=== PATIENT | female | born 1995 | race Caucasian/White ===

== ENCOUNTER → 2019-05-02 09:44 | Outpatient (BNVA) | payer OTHER, SELFPAY | PROVIDERS: Family Provider Family Medicine; PCP Family Medicine; Visit Provider Nurse Practitioner Family | DX: J02.9 Acute pharyngitis, unspecified (principal); J01.40 Acute pansinusitis, unspecified | CPT/HCPCS: 87070; 87880 ==

== ENCOUNTER → 2019-06-18 10:24 | Outpatient (BNVA) | payer OTHER, SELFPAY | PROVIDERS: Family Provider Family Medicine; PCP Family Medicine; Visit Provider Nurse Practitioner | DX: R05 Cough (principal); J10.1 Influenza due to other identified influenza virus with other respiratory manifestations | CPT/HCPCS: 87804 ==

== ENCOUNTER 2021-05-31 15:23 | Emergency (ER) | payer OTHER, SELFPAY ==
[2021-05-31 16:20] VITALS: BP 182/85; PULSE 77; RESP 18; TEMP 37.2; O2SAT 99; BMI 50.5
--- NOTE | 2021-05-31 19:45 | USR_ITS ---
PROCEDURE INFORMATION: Exam: US Abdomen, Limited; Right Upper Quadrant Exam date and time: 05/31/2021 7:45 PM Age: 25 years old Clinical indication: Abdominal pain; Additional info: Eval for R upper abd pain TECHNIQUE: Imaging protocol: US abdomen. Real time ultrasound with image documentation. Limited exam focused on the right upper quadrant. COMPARISON: US [facility] [place] OB < 14 weeks w TV 11/03/2016 2:45 PM FINDINGS: Liver: Liver is mildly enlarged and shows normal uniform echogenicity. There is no focal abnormality within the liver. Liver measures 17 cm in height. Gallbladder: Gallbladder is normal. There is no gallstone. There is no gallbladder wall thickening or pericholecystic fluid. Common bile duct: Common bile duct measures 2 mm. Pancreas: Pancreas is largely obscured by intestinal gas. The visualized portions are unremarkable. Right kidney: No hydronephrosis. Normal size with normal cortical echogenicity. Inferior vena cava: IVC has a normal diameter and is patent. US/US gall bladder [id number] IMPRESSION: Mild hepatomegaly. No acute findings.
--- NOTE | 2021-05-31 19:45 | USR_ITS ---
PROCEDURE INFORMATION: Exam: US Pelvis Complete, Transabdominal and US Pelvis, Transvaginal Exam date and time: 05/31/2021 7:45 PM Age: 25 years old Clinical indication: Pelvic pain; Patient HX: Vaginal bleeding; Additional info: Vagingal bleeding eval ovarian pathologies TECHNIQUE: Imaging protocol: Real-time transabdominal and transvaginal pelvic ultrasound (complete) with image documentation. Transvaginal imaging was used for better evaluation of the endometrium, adnexa, and/or cervix. COMPARISON: US [facility] [place] < 14 weeks w TV 11/03/2016 2:45 PM FINDINGS: Uterus: Uterus measures 6.6 x 5.3 x 3.8 cm. Endometrium is 8 mm in thickness. Cervix: There is a small nabothian cyst in the cervix. Uterus is otherwise unremarkable. Right ovary/adnexa: Right ovary measures 3.1 x 2.8 x 1.8 cm. There is some small follicles in the right ovary. There is normal Doppler flow in the right ovary. Left ovary/adnexa: Left ovary measures 2.7 x 2.0 x 1.1 cm. There is a small simple cyst in the left ovary measuring 2.1 x 0.3 x 1.0 cm. There is normal Doppler flow in the left ovary. Intraperitoneal space: No free fluid is identified. Urinary bladder: Normal. US/US pelvic with transvaginal IMPRESSION: Basically unremarkable ultrasound of the pelvis.
--- NOTE | 2021-05-31 19:59 | ED_ITS ---
HPI - General Adult General: Chief complaint: Abdominal Pain Stated complaint: R side an back pain Time Seen by Provider: 05/31/21 19:19 History of Present Illness: Patient is a 25-year-old female with a history of irregular periods, prior ectopic presenting to the emergency room with complaints of heavy bleeding since 2 AM yesterday morning along with right-sided flank and back pain. Patient tells me that she was sleepy in the morning when she son laid noticed passage of clots and heavy bleeding. Since then, patient has gone through multiple pads an hour with usage of tampons. In addition, since this morning, patient has noted significant right-sided flank pain. No history of kidney stones. Patient denies any new vaginal discharge, urinary complaints including hematuria/polyuria or dysuria. Patient has no abdominal complaints. Denies any nausea/vomiting, fever/chills, decreased p.o. intake, chest pain shortness of lightheadedness or palpitation. Patient has no prior abdominal surgery. Denies any trauma to the abdomen. Onset: 1 day ago Duration: ongoing Associated symptoms: heavy vaginal bleeding and R sided abd/flank pain Severity: moderate Associated symptoms: Deny chest pain, dyspnea, nausea, rash, palpitations or vomiting Review of Systems Const: Denies: fever(s) or chills Eyes: Denies: change in vision ENMT: Denies: mouth pain Card: Denies: chest pain or palpitations Resp: Denies: dyspnea or non-productive cough GI: Reports: abdominal pain (+R sided abd pain); Denies: nausea, vomiting or diarrhea : Reports: other (+vaginal bleeding); Denies: dysuria Musc: Denies: extremity pain Skin/Breast: Denies: rash or new lesions Neuro: Denies: weakness in extremities Psych: Reports: other (Normal mood) Josh/Lymph: Denies: easy bruising PFS ED PFSH: Medical History Ectopic Irregular periods Social History Smoking and tobacco status: never smoked Alcohol intake: current Alcohol intake frequency: holidays/special occasions only Substance/Drug Use: never Physical Exam Const: COMMON NORMALS: alert HENMT: COMMON NORMALS: atraumatic HEAD & SCALP: atraumatic MOUTH: moist mucous membranes not abnormal Eye: COMMON NORMALS: EOMs intact bilaterally and conjunctivae normal CONJUNCTIVA: Yes conjunctivae normal Neck/C-Spine: COMMON NORMALS: full ROM and supple Resp: COMMON NORMALS: normal respiratory effort and clear to auscultation bilaterally AUSCULTATION: clear to auscultation bilaterally Cardio: COMMON NORMALS: regular rate RATE: regular rate GI: COMMON NORMALS: Soft to palpation and non-tender PALPATION: Yes Soft to palpation Extremity: COMMON NORMALS: full ROM Neuro: SENSORIUM/ORIENTATION: Yes alert MOTOR EXAM: No Abnormal motor strength present and Other motor observations present (no focal motor deficits) Psych: COMMON NORMALS: speech normal SPEECH: Yes normal speech MOOD & AFFECT: Yes euthymic mood Course Vital Signs: Vital signs: Vital Signs Temperature 98.4 F 06/01/21 04:51 Pulse Rate 67 06/01/21 04:51 Respiratory Rate 15 06/01/21 04:51 Blood Pressure 165/87 06/01/21 04:51 Pulse Oximetry 97 06/01/21 04:51 MDM - General Adult Medical Decision Making 25-year-old female presenting to the emergency with complaints of right side abdominal pain/flank pain and heavy vaginal bleeding x1 day. On exam, patient is noted to have a small pool of blood in the vaginal vault. No other signs of active bleeding. Patient on abdominal exam has mild tenderness to palpation without any guarding or rebound tenderness or Grace sign. WBC of 12.5 today. Hemoglobin 7.5 initially but on repeat after 2 hours remained similar to 7.4. Ultrasound did not show any signs of cholecystitis, hydronephrosis on the right side, or [facility] pathology. She received morphine and Tylenol with significant improvement in pain. No concern for active extravasation or bleeding at this time. Hemoglobin of 7.5, decision was made in congestion with patient to have close follow-up follow-up with AXLE TURNER. I have given patient follow up with our rifle case repairer to be seen by Dr. Reeves for heavy and irregular bleeding in the setting of hemoglobin of 7.5. Patient aware of a call from our rifle case repairer to schedule for appointment(s) and verbalizes understanding of the importance of following up. It is expected have an appointment on Monday or Monday. Dr. Reeves recommend transfusing 2 units of blood in the emergency room in case patient have more bleeding until seen in 2-3 deays. Patient received 2 units of blood in the ER. Patient refused control for bleeding control given famly hx of blood clots. Rx iron tablet for anemia, tylenol PRN abd pain, maalox/pepcid PRN dyspepsia, a nd zofran PRN nausea/vomiting Disposition: Discharge. Patient counseled regarding diagnostic impression, treatment plan. Patient given ED strict return precautions to return for continuation, worsening, or development of new symptoms. Instructed to f/u w/ PCP regarding symptoms today. Patient verbalized understanding. Lab Data : 05/31/21 21:54 05/31/21 20:00 Radiology Impressions Gallbladder Ultrasound 05/31/21 19:45 IMPRESSION: Mild hepatomegaly. No acute findings. Pelvic/Transvag US 05/31/21 19:45 IMPRESSION: Basically unremarkable ultrasound of the pelvis. Laboratory Results WBC 12.5 10^3/uL (4.0-10.0) H 05/31/21 21:54 RBC 4.92 10^6/uL (4.1-5.3) 05/31/21 21:54 Hgb 7.4 g/dL (11.5-15.3) L 05/31/21 21:54 Hct 29.1 % (37.0-47.0) L 05/31/21 21:54 MCV 59.1 fl (81-99) L 05/31/21 21:54 MCH 15.0 pg (28.0-34.0) L 05/31/21 21:54 MCHC 25.4 g/dL (30.0-36.0) L 05/31/21 21:54 RDW 22.3 % (12.1-15.1) H 05/31/21 21:54 Plt Count 428 10^3/cmm (130-400) H 05/31/21 21:54 MPV 9.3 fL (7.4-10.4) 05/31/21 21:54 Neut % (Auto) 67.5 % 05/31/21 21:54 Lymph % (Auto) 23.2 % 05/31/21 21:54 [place] % (Auto) 5.2 % 05/31/21 21:54 Eos % (Auto) 2.9 % 05/31/21 21:54 Baso % (Auto) 0.9 % 05/31/21 21:54 Neut # (Auto) 8.41 10^3/uL (1.8-7.7) H 05/31/21 21:54 Lymph # (Auto) 2.9 10^3/uL (0.8-4.8) 05/31/21 21:54 [place] # (Auto) 0.7 10^3/uL (0.2-0.9) 05/31/21 21:54 Eos # (Auto) 0.4 10^3/uL (0.0-0.8) 05/31/21 21:54 Baso # (Auto) 0.1 10^3/uL (0.0-0.1) 05/31/21 21:54 Nucleated RBC % (auto) 0 % 05/31/21 21:54 Nucleated RBCs # 0.0 /100WBC 05/31/21 21:54 Sodium 139 mmol/L (136-145) 05/31/21 20:00 Potassium 3.4 mmol/L (3.5-5.1) L 05/31/21 20:00 Chloride 106 mmol/L (98-107) 05/31/21 20:00 Carbon Dioxide 21 mmol/L (22-29) L 05/31/21 20:00 Anion Gap 15.4 (5-19) 05/31/21 20:00 BUN 14 mg/dL (6-20) 05/31/21 20:00 Creatinine 0.8 mg/dL (0.5-0.9) 05/31/21 20:00 GFR Calculation 88.9 mL/min (90-130) L 05/31/21 20:00 Glucose 90 mg/dL (65-115) 05/31/21 20:00 Calculated Osmolality 288 mOsm/kg (285-295) 05/31/21 20:00 Calcium 9.5 mg/dL (8.5-10.5) 05/31/21 20:00 Total Bilirubin 0.2 mg/dL (0.15-1.2) 05/31/21 20:00 AST 15 U/L (0-32) 05/31/21 20:00 ALT 16 U/L (0-33) 05/31/21 20:00 Alkaline Phosphatase 97 IU/L (35-105) 05/31/21 20:00 Total Protein 7.2 g/dL (6.6-8.7) 05/31/21 20:00 Albumin 3.8 g/dL (3.5-5.2) 05/31/21 20:00 Globulin 3.4 g/dL (1.3-4.6) 05/31/21 20:00 Lipase 16 U/L (13-60) 05/31/21 20:00 HCG, Qual Negative (Negative) 05/31/21 21:54 Blood Type O Positive 05/31/21 23:01 Rho(D) Type Positive 05/31/21 23:01 Antibody Screen Negative 05/31/21 23:01 Crossmatch See Detail 05/31/21 23:01 Imaging Data Other Imaging: Radiologist's impression: [id number] [address] Ultrasound Report Signed Patient: Napoleon Sanchez Unit #: [id number] : 1995 Age/Sex: 25 / F ADM Date: 05/31/21 Loc: ER Room/Bed: Attending Dr: Ordering Provider/Ordering MD: Rita Garcia MD Date of Service: 05/31/21 Procedure(s): US pelvic with transvaginal Accession Number(s): [id number] Report Number: [id number] PROCEDURE INFORMATION: Exam: US Pelvis Complete, Transabdominal and US Pelvis, Transvaginal Exam date and time: 05/31/2021 7:45 PM Age: 25 years old Clinical indication: Pelvic pain; Patient HX: Vaginal bleeding; Additional info: Vagingal bleeding eval ovarian pathologies TECHNIQUE: Imaging protocol: Real-time transabdominal and transvaginal pelvic ultrasound (complete) with image documentation. Transvaginal imaging was used for better evaluation of the endometrium, adnexa, and/or cervix. COMPARISON: US [facility] [place] < 14 weeks w TV 11/03/2016 2:45 PM FINDINGS: Uterus: Uterus measures 6.6 x 5.3 x 3.8 cm. Endometrium is 8 mm in thickness. Cervix: There is a small nabothian cyst in the cervix. Uterus is otherwise unremarkable. Right ovary/adnexa: Right ovary measures 3.1 x 2.8 x 1.8 cm. There is some small follicles in the right ovary. There is normal Doppler flow in the right ovary. Left ovary/adnexa: Left ovary measures 2.7 x 2.0 x 1.1 cm. There is a small simple cyst in the left ovary measuring 2.1 x 0.3 x 1.0 cm. There is normal Doppler flow in the left ovary. Intraperitoneal space: No free fluid is identified. Urinary bladder: Normal. US/US pelvic with transvaginal IMPRESSION: Basically unremarkable ultrasound of the pelvis. ? Dictated By: Raimundo De La Torre Signed By: Raimundo De La Torre Signed Date/Time: 05/31/212229 DD/ [address] [address] Ultrasound Report Signed Patient: Napoleon Sanchez Unit #: [id number] : 1995 Age/Sex: 25 / F ADM Date: 05/31/21 Loc: ER Room/Bed: Attending Dr: Ordering Provider/Ordering MD: Rita Garcia MD Date of Service: 05/31/21 Procedure(s): US gall bladder 60105 Accession Number(s): [id number] Report Number: [id number] PROCEDURE INFORMATION: Exam: US Abdomen, Limited; Right Upper Quadrant Exam date and time: 05/31/2021 7:45 PM Age: 25 years old Clinical indication: Abdominal pain; Additional info: Eval for R upper abd pain TECHNIQUE: Imaging protocol: US abdomen. Real time ultrasound with image documentation. Limited exam focused on the right upper quadrant. COMPARISON: US [facility] [place] [facility] < 14 weeks w TV 11/03/2016 2:45 PM FINDINGS: Liver: Liver is mildly enlarged and shows normal uniform echogenicity. There is no focal abnormality within the liver. Liver measures 17 cm in height. Gallbladder: Gallbladder is normal. There is no gallstone. There is no gallbladder wall thickening or pericholecystic fluid. Common bile duct: Common bile duct measures 2 mm. Pancreas: Pancreas is largely obscured by intestinal gas. The visualized portions are unremarkable. Right kidney: No hydronephrosis. Normal size with normal cortical echogenicity. Inferior vena cava: IVC has a normal diameter and is patent. US/ gall bladder 13150 IMPRESSION: Mild hepatomegaly. No acute findings. ? Dictated By: Raimundo De La Torre Signed By: Raimundo De La Torre Signed Date/Time: 05/31/212157 DD/ 44 Discharge Plan Discharge Patient Disposition: Home Clinical Impression: Abnormal vaginal bleeding, Abdominal pain Condition: Stable Prescriptions: New acetaminophen 500 mg tablet 500 mg PO Q6H PRN (Reason: pain) 5 Days Qty: 20 0RF Zofran 4 mg tablet 4 mg PO TID PRN (Reason: nausea and vomiting) 4 Days Qty: 12 0RF Pepcid 20 mg tablet 20 mg PO BID PRN (Reason: abdominal pain) 10 Days Qty: 20 0RF Maalox Advanced 1,000-60 mg tablet,chewable 1 tab PO TID PRN (Reason: abdominal pain) 7 Days Qty: 21 0RF ferrous sulfate 325 mg (65 mg iron) tablet 325 mg PO BID 15 Days Qty: 30 0RF No Action labetalol 200 mg tablet 200 mg PO BID 0RF albuterol sulfate [ProAir HFA] 90 mcg/actuation HFA aerosol inhaler 2 puff INHALATION Q6H PRN0RF Discharge Orders: Discharge ED (Routine); Ordered 06/01/21 Ordered By: Rita Garcia Referrals: Shakeel Mei MD [Primary Care Provider] - Discharge Diet: Advance as tolerated Discharge Activity: Increase activity as tolerated Patient Instructions: Abnormal (Dysfunctional) Uterine Bleeding (ED), Abdominal Pain (ED) Activity Restrictions/Additional Instructions: Please come back if you have any worsening abdominal pain, fever or chills, nausea or vomiting, diarrhea, blood in the stool, inability hold down liquid or solids, or any new concerning complaints. Our rifle case repairer will have you follow-up with a log driver in the next few days for evaluation of pain. You would be expected to have a phone call with our rifle case repairer who will put you on the schedule. Please do not smoke cigarettes while taking your control pill. Call Dr. Reeves's clinic to schedule an appointment at?[phone]. She will briggs ve you scheduled for Monday or Monday Coding Level of Care Code ED Gameplay Programmer for Chg Fwd Exam Comprehensive
[2021-05-31 20:00] VITALS: BP 156/81; PULSE 75; RESP 18; TEMP 37.2; O2SAT 99
[2021-05-31 20:10] LABS: Basophils # 0.1 10^3/uL (0.0-0.1); Basophils % 0.9 %; Eosinophils # 0.3 10^3/uL (0.0-0.8); Eosinophils % 2.4 %; Hematocrit 29.4 % (37.0-47.0); Hemoglobin 7.5 g/dL (11.5-15.3); Lymphocytes # 2.8 10^3/uL (0.8-4.8); Lymphocytes % 23.6 %; Mean Corpuscular HGB Conc 25.5 g/dL (30.0-36.0); Mean Corpuscular Hemoglobin 15.1 pg (28.0-34.0); Mean Corpuscular Volume 59.2 fl (81-99); Mean Platelet Volume 9.1 fL (7.4-10.4); Monocytes # 0.6 10^3/uL (0.2-0.9); Monocytes % 4.7 %; Neutrophils # 8.01 10^3/uL (1.8-7.7); Neutrophils % 68.1 %; Nucleated Red Blood Cells % 0 %; Platelet Count 433 10^3/cmm (130-400); Red Blood Count 4.97 10^6/uL (4.1-5.3); Red Cell Distribution Width 22.3 % (12.1-15.1); White Blood Count 11.8 10^3/uL (4.0-10.0)
--- NOTE | 2021-05-31 20:24 | PC.NURSE ---
Assisted Dr. Garcia during a pelvic exam. PT tolerated it well.
[2021-05-31 20:43] LABS: Alanine Aminotransferase 16 U/L (0-33); Albumin Level 3.8 g/dL (3.5-5.2); Alkaline Phosphatase 97 IU/L (35-105); Anion Gap 15.4 (5-19); Aspartate Amino Transferase 15 U/L (0-32); Blood Urea Nitrogen 14 mg/dL (6-20); Calcium 9.5 mg/dL (8.5-10.5); Carbon Dioxide 21 mmol/L (22-29); Chloride 106 mmol/L (98-107); Globulin 3.4 g/dL (1.3-4.6); Glomerular Filtration Rate 88.9 mL/min (90-130); Glucose 90 mg/dL (65-115); Lipase 16 U/L (13-60); Osmolality Calculated 288 mOsm/kg (285-295); Potassium 3.4 mmol/L (3.5-5.1); Sodium 139 mmol/L (136-145); Total Bilirubin 0.2 mg/dL (0.15-1.2); Total Protein 7.2 g/dL (6.6-8.7)
[2021-05-31] MEDS: potassium chloride ER 20 mEq Tablet 40 MEQ PO (21:59)
[2021-05-31 22:02] LABS: Basophils # 0.1 10^3/uL (0.0-0.1); Basophils % 0.9 %; Eosinophils # 0.4 10^3/uL (0.0-0.8); Eosinophils % 2.9 %; Hematocrit 29.1 % (37.0-47.0); Hemoglobin 7.4 g/dL (11.5-15.3); Lymphocytes # 2.9 10^3/uL (0.8-4.8); Lymphocytes % 23.2 %; Mean Corpuscular HGB Conc 25.4 g/dL (30.0-36.0); Mean Corpuscular Volume 59.1 fl (81-99); Mean Platelet Volume 9.3 fL (7.4-10.4); Monocytes # 0.7 10^3/uL (0.2-0.9); Monocytes % 5.2 %; Neutrophils # 8.41 10^3/uL (1.8-7.7); Neutrophils % 67.5 %; Nucleated Red Blood Cells % 0 %; Platelet Count 428 10^3/cmm (130-400); Red Blood Count 4.92 10^6/uL (4.1-5.3); Red Cell Distribution Width 22.3 % (12.1-15.1); White Blood Count 12.5 10^3/uL (4.0-10.0)
[2021-05-31 22:21] LABS: HCG, Serum Qual Negative (Negative)
[2021-05-31 22:25] VITALS: RESP 18
[2021-05-31] MEDS: acetaminophen 500 mg Tablet PO (22:25)
[2021-05-31] MEDS: morphine 4 mg/mL SDV 1 mL 2 MG IVP (22:25)
[2021-05-31] MEDS: sodium chloride 0.9% 100 mL Bag 50 ML IV (23:47)
[2021-06-01] VITALS (11 sets, daily range): BP systolic 165–186; BP diastolic 87–111; PULSE 64–75; RESP 15–17; TEMP 36.9; O2SAT 97–99
[2021-06-01] MEDS: labetalol 200 mg Tablet PO (04:50)
--- NOTE | 2021-06-01 10:54 | DCPLANNER ---
Addendum entered by Ania Sanders 07/23/21 12:48: Patient had a follow up appointment scheduled for 07.19.21 with [facility] - patient did attend appointment. Addendum entered by Ania Sanders 06/11/21 08:06: Patient has a follow up appointment scheduled for Monday, July 19, 2021 at 9:[address] Duran at [facility]. Clinic will call patient with appointment information. Original Note: manager quantitative had message to schedule a follow up appointment for patient with [facility]. manager quantitative called the [facility], spoke with Praneeth, gave clinic patients information. manager quantitative was told that patients information would be printed and reviewed. Clinic will call patient with appointment information.
== END 2021-06-01 04:53 | disposition home or self-care (01) ==
PROVIDERS: Physician Assistant; Emergency Provider Emergency Medicine; PCP Family Medicine
DX: R10.9 Unspecified abdominal pain (principal); N93.9 Abnormal uterine and vaginal bleeding, unspecified
CPT/HCPCS: 36430; 76705; 76830; 76856; 80053; 83690; 84703; 85025; 86850; 86900; 86920; 96374; 99284; J2270; P9016

== ENCOUNTER → 2021-07-07 13:30 | Outpatient (BNVA) | payer OTHER, SELFPAY | PROVIDERS: PCP Family Medicine; Visit Provider Obstetrics & Gynecology | DX: Z87.59 Personal history of other complications of pregnancy, childbirth and the puerperium (principal) | CPT/HCPCS: 80053; 84702; 85025; 86850; 86900 ==

== ENCOUNTER → 2021-09-13 10:06 | Outpatient (BNVA) | payer OTHER, SELFPAY | PROVIDERS: PCP Family Medicine; Visit Provider Obstetrics & Gynecology | DX: N93.9 Abnormal uterine and vaginal bleeding, unspecified (principal); Z12.4 Encounter for screening for malignant neoplasm of cervix | CPT/HCPCS: 84144; 84146; 84403; 84443; 84702; 88175 ==

== ENCOUNTER → 2021-10-18 16:04 | Outpatient (BNVA) | payer OTHER, SELFPAY | PROVIDERS: PCP Family Medicine; Visit Provider Obstetrics & Gynecology | DX: N93.9 Abnormal uterine and vaginal bleeding, unspecified (principal) | CPT/HCPCS: 85027 ==

== ENCOUNTER 2021-11-16 08:18 | Outpatient (CLI) | payer OTHER, SELFPAY ==
--- NOTE | 2021-11-16 08:30 | FL_ITS ---
WS: [id number] HYSTEROGRAM PERFORMED UNDER FLUOROSCOPY HISTORY: E28.2 - Polycystic ovarian syndrome. FLUOROSCOPY TIME: 1min [id number] minutes. # Of spot films: 4. Cannulization of the cervix performed by Dr. Saez. Good filling of the uterus. There is immediate filling and spillage from the RIGHT fallopian tube which is normal size. Very slight dilatation of t he LEFT fallopian tube which does not during this examination. FL/FL hysterosalpingography [id number] IMPRESSION: 1. Obstructed LEFT fallopian tube. 2. Patent RIGHT fallopian tube.
--- NOTE | 2021-11-16 09:16 | PM.OP ---
Operative Report Date of procedure: November 16, 2021 Pre-op diagnosis: PCOS Post-op diagnosis: same Procedure done: HSG Surgeon: Dinora Saez Estimated blood loss (mL): 0 Complications: none Findings: 6 week sized uterus. Normal right patency. Blocked left tube. (patient reports left tubal last year) Procedure: The patient was placed in the dorsal lithotomy position with a towel roll under her buttocks. The speculum was inserted and the cervix cleansed with Betadine. A single-tooth tenaculum was placed onto the anterior lip of the cervix. Using an Able Device uterine manipulator, 20 mL of contrast was injected into the uterus slowly. Pictures were taken with the C arm. The procedure showed that there was a normal uterine contour, and normal patency on the right. On the left it showed patency to the mid tube and then the contrast stopped. Images were taken pre during and post procedure. All instruments were removed. The patient tolerated the procedure well. Sponge counts were normal at the end of the procedure. She was given post procedure instructions.
--- NOTE | 2021-11-16 09:23 | W.PM.OPSUD ---
Surgery/Procedure H&P Update DATE OF PROCEDURE: November 16, 2021 DATE H&P PERFORMED: 10/18/21 H&P UPDATE INFORMATION: I have reviewed H&P completed within last 30 days, I have examined patient prior to procedure and No changes to prior documentation Related Problem List Diagnoses (1) Morbid obesity due to excess calories: (2) PCOS (polycystic ovarian syndrome):
[2021-11-16] MEDS: iohexol 240 mg/mL 50 mL Btl INTRA-ARTI (09:27)
== END 2021-11-16 08:19 | disposition home or self-care (01) ==
PROVIDERS: PCP Nurse Practitioner Family; Visit Provider Obstetrics & Gynecology
DX: E28.2 Polycystic ovarian syndrome (principal); N97.1 Female infertility of tubal origin
CPT/HCPCS: 74740

== ENCOUNTER → 2021-11-24 15:29 | Outpatient (BNVA) | payer OTHER, SELFPAY | PROVIDERS: PCP Nurse Practitioner Family; Visit Provider Obstetrics & Gynecology | DX: N92.6 Irregular menstruation, unspecified (principal) | CPT/HCPCS: 83036; 83525 ==

== ENCOUNTER → 2022-09-09 19:10 | Outpatient (BNVA) | payer OTHER, SELFPAY | PROVIDERS: PCP Nurse Practitioner Family; Visit Provider Registered Nurse Neonatal Intensive Care | DX: J02.9 Acute pharyngitis, unspecified (principal) | CPT/HCPCS: 87071; 87880 ==

== ENCOUNTER 2022-12-23 15:40 | Emergency (ER) | payer OTHER, SELFPAY ==
[2022-12-23 15:51] VITALS: BP 202/107; PULSE 92; RESP 16; TEMP 36.6; BMI 59.5
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
== END 2022-12-23 17:45 | disposition home or self-care (01) ==
PROVIDERS: Emergency Provider Physician Assistant; PCP Nurse Practitioner Family
DX: S40.022A Contusion of left upper arm, initial encounter (principal); V87.7XXA Person injured in collision between other specified motor vehicles (traffic), initial encounter; S60.222A Contusion of left hand, initial encounter
CPT/HCPCS: 73080; 99283

== ENCOUNTER 2022-12-28 11:03 | Emergency (ER) | payer OTHER, SELFPAY ==
[2022-12-28 11:38] VITALS: BP 163/85; PULSE 78; RESP 16; TEMP 36.8; O2SAT 94
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
[2022-12-28] MEDS: ondansetron 2 mg/ML SDV 2 mL 4 MG IVP (12:08)
[2022-12-28] MEDS: sodium chloride 0.9% 1,000 ML 999 ML IV (12:09)
[2022-12-28 12:18] LABS: Basophils # 0.1 10^3/uL (0.0-0.1); Basophils % 0.8 %; Eosinophils # 0.2 10^3/uL (0.0-0.8); Eosinophils % 1.7 %; Hematocrit 29.2 % (36-47); Lymphocytes # 1.6 10^3/uL (0.8-4.8); Lymphocytes % 14.2 %; Mean Corpuscular HGB Conc 26.4 g/dL (30-55); Mean Corpuscular Hemoglobin 16.1 pg (27-33); Mean Corpuscular Volume 61.1 fl (85-98); Mean Platelet Volume 9.4 fL (7.4-10.4); Monocytes # 0.5 10^3/uL (0.2-0.9); Monocytes % 4.6 %; Neutrophils # 8.71 10^3/uL (1.8-7.7); Neutrophils % 78.3 %; Nucleated Red Blood Cells % 0.3 %; Platelet Count 413 10^3/cmm (157-399); Red Blood Count 4.78 10^6/uL (3.85-5.65); White Blood Count 11.13 10^3/uL (3.29-11.43)
[2022-12-28 12:38] LABS: Albumin Level 4.1 g/dL (3.5-5.2); Alkaline Phosphatase 90 U/L (35-105); Chloride 103 mmol/L (98-107); Potassium 3.9 mmol/L (3.5-5.1); Sodium 138 mmol/L (136-145)
[2022-12-28 12:56] LABS: Anion Gap 14.9 (5-19); Aspartate Amino Transferase 15 U/L (0-32); Blood Urea Nitrogen 10 mg/dL (6-20); Calcium 8.8 mg/dL (8.5-10.5); Carbon Dioxide 24 mmol/L (22-29); Glomerular Filtration Rate 87.4 mL/min (90-130); Glucose 111 mg/dL (65-115); Osmolality Calculated 286 mOsm/kg (285-295); Total Bilirubin 0.3 mg/dL (0.15-1.2); Total Protein 7.1 g/dL (6.6-8.7)
[2022-12-28 13:12] VITALS: BP 189/96; PULSE 79; O2SAT 96
[2022-12-28 13:18] LABS: Alanine Aminotransferase 18 U/L (0-33)
[2022-12-28 13:28] LABS: Add Urine Microscopic? YES; Bacteria Urine TRACE /hpf; Bilirubin Urine Neg (Negative); Blood Urine Neg (Negative); Glucose Urine UA Norm (Normal); Ketones Urine Negative (Negative); Leukocyte Esterase Urine 2+ (Negative); Nitrate Urine Negative (Negative); Protein Urine Neg (Negative); RBC Urine 0-4 /hpf (0-2); Specific Gravity, Urine 1.005 (1.005-1.030); Squamous Epithelial Cell Urine 0-4 /hpf (0-5); Urine Appearance Clear (CLEAR); Urine Color Yellow (Yellow); Urobilinogen Urine Norm (Negative); pH Urine 7 (5-7)
[2022-12-28 13:29] LABS: Add Urine Culture? No; Mucus Urine 1+ /hpf
[2022-12-28 13:58] VITALS: BP 177/84; PULSE 94; O2SAT 94
== END 2022-12-28 14:00 | disposition home or self-care (01) ==
PROVIDERS: Emergency Provider Family Medicine; PCP Nurse Practitioner Family
DX: S06.0X0A Concussion without loss of consciousness, initial encounter (principal); Z79.84 Long term (current) use of oral hypoglycemic drugs; I10 Essential (primary) hypertension; V89.2XXA Person injured in unspecified motor-vehicle accident, traffic, initial encounter
CPT/HCPCS: 70450; 72125; 80053; 81001; 85025; 96361; 96374; 99285; J2405; J7030

== ENCOUNTER 2024-07-24 09:57 | Oncology outpatient (recurring) (ONCR) | payer OTHER, SELFPAY ==
[2024-07-24] VITALS (14 sets, daily range): BP systolic 98–185; BP diastolic 59–103; PULSE 62–88; RESP 16–18; TEMP 36.7–38.2; O2SAT 93–100
[2024-07-24 10:57] LABS: Hematocrit 30.1 % (36-47)
[2024-07-24] MEDS: sodium chloride 0.9% 250 mL Bag IV (12:11)
== END 2024-07-29 23:59 | disposition home or self-care (01) ==
PROVIDERS: PCP Nurse Practitioner Family; Visit Provider Nurse Practitioner Family
DX: D64.9 Anemia, unspecified (principal)
CPT/HCPCS: 36430; 85014; 85018; 86850; 86900; 86920; J7050; P9016

== ENCOUNTER 2024-08-20 09:45 | Oncology outpatient (recurring) (ONCR) | payer OTHER, SELFPAY | END 2024-08-28 23:59 | disposition home or self-care (01) | PROVIDERS: PCP Nurse Practitioner Family; Visit Provider Nurse Practitioner Family | DX: Z53.9 Procedure and treatment not carried out, unspecified reason (principal) ==